=== PATIENT | female | born 1990 | race Caucasian/White ===

== ENCOUNTER 2022-06-19 13:44 | Emergency (ER) | payer OTHER, SELFPAY ==
[2022-06-19 13:59] VITALS: BP 109/72; PULSE 78; RESP 16; TEMP 36.8; O2SAT 98; BMI 22.4
--- NOTE | 2022-06-19 14:26 | ED_ITS ---
HPI - General Adult General Chief complaint: Extremity Pain/Injury, Lower Stated complaint: Fell, injured right leg Time Seen by Provider: 06/19/22 13:52 History of Present Illness HPI narrative: This 31-year-old female comes in with her daughter because of a fall down the stairs that occurred just prior to arrival. She was at the top of about 8 steps and tripped over a blanket that her other child had in the area. She fell down most of those 8 stairs carrying her daughter. She landed on her right side and has an abrasion on her right gale. She was able to get up and ambulate. She has some pain in her right wrist and elbow. She has full range of motion of these joints and does not show any sign of deformity or swelling. Related Data Home Medications Medication Instructions Recorded Confirmed No Known Home Medications 06/19/22 06/19/22 Allergies Allergy/AdvReac Type Severity Reaction Status Date / Time amoxicillin Allergy Severe rash Verified 06/19/22 14:03 Review of Systems Status of ROS: Reports: 10 or more systems reviewed and unremarkable except as noted in History and below Narrative: Constitutional: No fevers, no weight gain or loss. Eyes: No discharge. No vision changes. HENT: No congestion, no sore throat, no ear pain. Cardiovascular: No chest pain, no palpitations. Respiratory: No shortness of breath, no wheezes, no cough. Gastrointestinal: No abdominal pain, no vomiting, no diarrhea. Genitourinary: No dysuria, no hematuria. Musculoskeletal: Normal range of motion. Discomfort in the right elbow and wrist. Skin: No rashes, no pruritis. Neurological: No dizziness, weakness, sensory change, speech change. Endo/Heme/Allergies: No bruising or bleeding. No polydipsia. Pysch: no suicidality, no anxiety, no insomnia. All other systems reviewed and are negative. PFSH PFSH Social History Smoking Status: Never smoker Do you use any of these nicotine containing products: None Second hand tobacco smoke exposure: No How often do you have a drink containing alcohol: never AUDIT-C Alcohol total score: 0 Non-prescribed substance use: denies use service: No Exam Narrative: Exam Narrative: Constitutional: Well-developed, well-nourished, no acute distress. HEENT: Normocephalic, atraumatic. Neck: Normal range of motion. Nontender. Supple. Heart: Intact distal pulses. Lungs: No chest discomfort. No wheezes, rhonchi, or rales. Abdomen: Nontender. Back: Normal range of motion. Extremities: Normal range of motion. No sign of injury except for 2 small superficial abrasions on the right gale. Diffuse tenderness in the right wrist with full range of motion and no sign of swelling or deformity. Skin: Intact. No rash. Warm. No erythema or pallor. Neurologic: No altered sensation. No weakness. Alert and oriented. Psychiatric: No suicidality. No anxiety or depression. No insomnia. Nursing notes and vitals signs are reviewed. Const: Vital Signs, click to edit/add: Vital Signs - 24 hr 06/19/22 13:59 Temperature 98.2 F Pulse Rate [Pulse Oximeter] 78 Respiratory Rate 16 Blood Pressure [Ri ght Upper Arm] 109/72 Pulse Oximetry 98 Oxygen Delivery Me thod Room Air Course Vital Signs Vital signs: Initial Vital Signs Temperature 98.2 F 06/19/22 13:59 Temperature Source Temporal Artery Scan 06/19/22 13:59 Pulse Rate 78 06/19/22 13:59 Pulse Rhythm 06/19/22 13:59 Pulse Strength 3+ Normal 06/19/22 13:59 Respiratory Rate 16 06/19/22 13:59 Blood Pressure 109/72 06/19/22 13:59 Blood Pressure Mean 84 06/19/22 13:59 Blood Pressure Position Sitting 06/19/22 13:59 Pulse Oximetry 98 06/19/22 13:59 Oxygen Delivery Method 06/19/22 13:59 Vital Signs Temperature 98.2 F 06/19/22 13:59 Pulse Rate 78 06/19/22 13:59 Respiratory Rate 16 06/19/22 13:59 Blood Pressure 109/72 06/19/22 13:59 Pulse Oximetry 98 06/19/22 13:59 Oxygen Delivery Method 06/19/22 13:59 Temperature 98.2 F 06/19/22 13:59 Pulse Rate 78 06/19/22 13:59 Respiratory Rate 16 06/19/22 13:59 Blood Pressure 109/72 06/19/22 13:59 Pulse Oximetry 98 06/19/22 13:59 Oxygen Delivery Method 06/19/22 13:59 Medical Decision Making MDM Narrative Medical decision making narrative: This patient comes in for evaluation of injury from a fall that occurred just prior to arrival. She did not have loss of consciousness and was able to get up and ambulate normally. She complains of some diffuse pain in her right wrist and elbow but shows no sign of injury. I did discuss lab and imaging options with the patient and these were declined in a process of shared decision making. Discharge Plan Discharge Clinical Impression: Contusion of multiple sites Patient Disposition: Home, Self-Care Condition: Stable Additional Instructions: Activity as tolerated. Use [id number] medicines as needed and directed. Follow up with MD or return if worsening. Prescriptions: No Action No Known Home Medications Follow Up/Referrals: Jocelyne Roth, [Primary Care Provider] - Stand Alone Forms: [facility] Info Instructions
== END 2022-06-19 14:53 | disposition home or self-care (01) ==
LOC: ED 14:37
PROVIDERS: Emergency Provider Emergency Medicine Emergency Medical Services; PCP Family Medicine
DX: M25.531 Pain in right wrist (principal); W10.9XXA Fall (on) (from) unspecified stairs and steps, initial encounter
CPT/HCPCS: 99282; 99283; 99284

== ENCOUNTER 2023-08-14 16:45 | Outpatient (RCR) | payer OTHER, SELFPAY | END 2023-10-16 13:27 | disposition home or self-care (01) | PROVIDERS: PCP Family Medicine; Visit Provider Student in an Organized Health Care Education/Training Program | DX: M72.2 Plantar fascial fibromatosis (principal); M76.61 Achilles tendinitis, right leg; Z51.89 Encounter for other specified aftercare | CPT/HCPCS: 97110; 97140; 97161 ==